=== PATIENT | female | born 1980 | race African-American/Black ===

== ENCOUNTER 2017-12-11 17:08 | Emergency (ER) | payer MEDICAID ==
[~2017-12-11] VITALS: Ht 165.1 cm; Wt 74.8 kg
[2017-12-11 17:53] LABS: APPEARANCE,URINE CLEAR; BILIRUBIN, URINE NEGATIVE (NEGATIVE); GLUCOSE, URINE (UA) NEGATIVE (NEGATIVE); KETONES,URINE 1+ (NEGATIVE); LEUKOCYTE ESTERASE ,URINE NEGATIVE (NEGATIVE); NITRITE,URINE NEGATIVE (NEGATIVE); PH,URINE 5 (4.5-8.0); PROTEIN,URINE 1+ (NEGATIVE); UROBILINOGEN,URINE NORMAL MG/DL (0.0-1.0)
[2017-12-11 17:55] VITALS: BP 101/62
[2017-12-11 18:05] LABS: COLOR,URINE YELLOW
--- NOTE | 2017-12-11 19:22 | Emergency Room Report ---
History of Present Illness General Chief Complaint: General Complaint Source: Patient Present Illness HPI 37-year-old female ED for evaluation. Patient complaining of clots passing. States that she was recently diagnosed with a bladder infection and started on antibiotics one week ago. States that she noticed clots today. Denies any discharge. States pain is suprapubic, dull, 5 out of 10, nonradiating. Denies any flank pain. Denies any fevers or chills. Denies nausea or vomiting. No other aggravating relieving factors. Denies any other associated symptoms Allergies: Coded Allergies: No Known Allergies (Unverified , 12/11/17) Patient History Past Medical History: none Past Surgical History: none Pertinent Family History: none Social History: Denies: smoking, alcohol use, drug use Last Menstrual Period: 11/16/17 Now: No Immunizations: UTD Reviewed Nursing Documentation: PMH: Agreed; PSxH: Agreed Nursing Documentation-PMH Past Medical History: No Stated History Review of Systems All Other Systems: negative except mentioned in HPI Physical Exam Vital Signs Date Time Temp Pulse Resp B/P (MAP) Pulse Ox O2 Delivery O2 Flow Rate FiO2 12/11/17 17:20 98.4 76 14 101/62 97 Room Air 98.4 Sp02 EP Interpretation: reviewed, normal General Appearance: no apparent distress, alert, GCS 15, non-toxic Head: normocephalic, atraumatic Eyes: bilateral eye normal inspection, bilateral eye PERRL ENT: hearing grossly normal, normal pharynx, no angioedema, normal voice Neck: full range of motion, supple/symm/no masses Respiratory: chest non-tender, lungs clear, normal breath sounds, speaking full sentences Cardiovascular #1: regular rate, rhythm, no edema Cardiovascular #2: 2+ carotid (R), 2+ carotid (L), 2+ radial (R), 2+ radial (L) , 2+ dorsalis pedis (R), 2+ dorsalis pedis (L) Gastrointestinal: normal bowel sounds, soft, non-distended, no guarding, no rebound, tenderness - suprapubic Rectal: deferred Genitourinary: normal inspection, no CVA tenderness Musculoskeletal: back normal, gait/station normal, normal range of motion, non- tender Neurologic: alert, oriented x3, responsive, motor strength/tone normal, sensory intact, speech normal Psychiatric: judgement/insight normal, memory normal, mood/affect normal, no suicidal/homicidal ideation Reflexes: 3+ bicep (R), 3+ bicep (L), 3+ tricep (R), 3+ tricep (L), 3+ knee (R) , 3+ knee (L) Skin: normal color, no rash, warm/dry, well hydrated Lymphatic: no adenopathy Medical Decision Making Diagnostic Impression: Primary Impression: Fibroid Qualified Codes: D25.9 - Leiomyoma of uterus, unspecified Additional Impression: Cystitis ER Course Hospital Course 37-year-old female presents to ED complaining of spotting, suprapubic pain Differential diagnoses include: gastrits, gastroenterits, ectopic , ovarian torsion/cyst, UTI Clinical course Patient placed on stretcher in ED. After initial history and physical I ordered UA and pelvic US Labs- UA + blood, some bacteria Pelvic ultrasound- unable to visualize the ovaries. noted fibroids. Discussed findings with the patient. Patient states she is aware of the fibroid history. Patient safe for discharge. Patient will follow-up with her [employer] INS[employer]ANCE CLAIM EXAMINER. Recommend that patient complete her antibiotic prescription Diagnosis - fibroids, cystitis Stable and discharged to home. complete abx Rx. Followup with PMD/DISABILITY INSURANCE CLAIM EXAMINER. Return to ED if symptoms recur or worsen Labs Test 12/11/17 17:35 Urine Color Yellow Urine Appearance Clear Urine pH 5 (4.5-8.0) Urine Specific [place] 1.025 (1.005-1.035) Urine Protein 1+ (NEGATIVE) Urine Glucose (UA) Negative (NEGATIVE) Urine Ketones 1+ (NEGATIVE) Urine Occult Blood 5+ (NEGATIVE) Urine Nitrite Negative (NEGATIVE) Urine Bilirubin Negative (NEGATIVE) Urine Urobilinogen Normal MG/DL (0.0-1.0) Urine Leukocyte Esterase Negative (NEGATIVE) Urine RBC 20-30 /HPF (0 - 2) Urine WBC 0-2 /HPF (0 - 2) Urine Squamous Epithelial Cells Many /LPF (NONE/OCC) Urine Bacteria Few /HPF (NONE) Urine HCG, Qualitative Negative (NEGATIVE) CT/MRI/US Diagnostic Results CT/MRI/US Diagnostic Results : Imaging Test Ordered: Pelvic US Impression fibroid. unable to visualize the ovaries Last Vital Signs Date Time Temp Pulse Resp B/P (MAP) Pulse Ox O2 Delivery O2 Flow Rate FiO2 12/11/17 17:55 98.4 14 101/62 97 Room Air 98.4 12/11/17 17:20 76 Status: improved Disposition: HOME, SELF-CARE Condition: Stable Referrals: NOT CHOSEN IPA/,REFERRING (PCP) Uziel Grace MD Dec 11, 2017 19:22
[2017-12-11 20:01] VITALS: BP 111/69
[2017-12-11 20:02] VITALS: BP 111/69
--- NOTE | 2017-12-11 22:37 | Diagnostic Imaging Report ---
EXAM: US Pelvis Complete, Transabdominal CLINICAL HISTORY: ABD PAIN TECHNIQUE: Real-time transabdominal pelvic ultrasound (complete) with image documentation. COMPARISON: No relevant prior studies available. FINDINGS: Uterus/cervix: Uterine fibroids, some which demonstrate calcification. Endometrium measures up to 7 mm. Uterus measures 9.8 x 6.8 x 5.0 cm. Right ovary: Ovaries were not visualized. Left ovary: Ovaries were not visualized. Free fluid: No free fluid. IMPRESSION: Myomatous uterus.
== END 2017-12-11 20:03 | disposition home or self-care (01) ==
LOC: EMR 17:35
DX: D25.9 Leiomyoma of uterus, unspecified (principal); N30.90 Cystitis, unspecified without hematuria
CPT/HCPCS: 76856; 81003; 81025; 99284